=== PATIENT | female | born 1985 | race African-American/Black ===

== ENCOUNTER 2017-01-13 11:55 | Emergency (ER) | payer OTHER ==
[~2017-01-13] VITALS: Ht 165.1 cm; Wt 108.9 kg
[2017-01-13 13:14] LABS: PLATELET COUNT 283 K/uL (152-353)
[2017-01-13 13:54] LABS: POTASSIUM 3.7 mmol/L (3.6-5.2); SODIUM 138 mmol/L (136-145)
== END 2017-01-13 14:40 | disposition left against medical advice (07) ==
LOC: ED 11:55
DX: J06.9 Acute upper respiratory infection, unspecified (principal); J20.9 Acute bronchitis, unspecified
CPT/HCPCS: 36415; 80053; 85027; 87081; 87880; 96374; 99284; J2930